=== PATIENT | male | born 1995 | race Two or more races ===

== ENCOUNTER → 2023-08-29 | Outpatient (CLI) | payer OTHER, SELFPAY ==
--- NOTE | 2023-08-29 | EGD_PTH ---
PATIENT: JOANNA FLORES [facility]#:[id number] AGE/SX: 27/M ROOM: RE08/29/[address]: Dr. Cecy Rajput MD : 1995 BED: DIS: 08/29/2023 SPEC #: [id number] RECD: 08/29/23 14:58 STATUS: JOSE ROCHA #: [id number] KATHY: 08/29/23 00:[address]: Cecy Rajput DEPT: SURGICAL PATHOLOGY RECD BY: Jeison Loya Tissues: A - Gastric mucous membrane B - Stomach, NOS Procedures: Surgery Specimen Level IV HEADER OPERATION: EGD PRE-OP DIAGNOSIS: Epigastric pain TISSUE SUBMITTED: A- Antral biopsy, B- Gastroesophageal junction biopsy MICROSCOPIC DIAGNOSIS A. Antrum, biopsy: Mild gastritis. See microscopic description and comment. B. Gastroesophageal junction, biopsy: A fragment of gastroesophageal mucosa with chronic inflammation. Intestinal metaplasia (goblet cell metaplasia) not identified. See comment. SJ/mr 5/7/24 COMMENT A. The results of immunohistochemistry for Helicobacter pylori will be reported separately ([id number]). B. Alcian blue/PAS stain with matched control is used in the evaluation of the specimen. MICROSCOPIC DESCRIPTION Slides are reviewed. A. The specimen shows fragments of gastric mucosa with chronic inflammatory cell infiltrates in the lamina propria consisting of lymphocytes and plasma cells, consistent with mild chronic gastritis. GROSS DESCRIPTION A. Received in fixative is one container labeled with the patient's name and designated Antrum biopsy. The specimen consists of one irregular fragment of light wright soft tissue that measures 0.2 x 0.2 x 0.1 cm. The specimen is totally submitted in one cassette. B. Received in fixative is one container labeled with the patient's name and designated GE junction biopsy. The specimen consists of one irregular fragment of light wright soft tissue that measures 0.3 x 0.3 x 0.1 cm. The specimen is totally submitted in one cassette. / 09/01/23 TC:3 CPT:29790u5,48169
--- NOTE | 2023-08-29 14:58 | IMM_PTH ---
PATIENT: JOANNA FLORES LOC: [facility] U#:[id number] AGE/SX: 27/M ROOM: RE08/29/[address]: Dr. Cecy Rajput MD : 1995 BED: DIS: 08/29/2023 SPEC #: [id number] RECD: 09/01/23 09:32 STATUS: JOSE ROCHA #: [id number] KATHY: 08/29/23 14:[address]: Cecy Rajput DEPT: IMMUNOHISTOCHEMISTRY RECD BY: Chad Wilkins Tissues: A - Stomach, NOS Procedures: H Pylori (initial) PHYSICIAN & INSTITUTION [place] [id number] SPECIMEN INFORMATION: Tissue Source: A- Antrum biopsy Clinical Info: Epigastric pain Specimen Number: [id number] CPT code: 34799 METHODOLOGY: Deparaffinized sections of prefer/formalin-fixed tissue or PAP/DQ stained slides are incubated with monoclonal/polyclonal antibodies/oligonucleotide probes. Localization is made via biotin free immunoperoxidase method. Appropriate controls are performed and reacted as expected. Results on target cell population are indicated in the following table: RESULTS: ANTIBODY / CLONE RESULT Block A H Pylori (polyclonal) negative These tests were developed and their performance characteristics determined by [facility]. They may not have been cleared or approved by the [place]. Food and Drug Administration. The FDA has determined that such clearance or approval is not necessary. The above immunohistochemical/dualISH markers are ordered and reviewed by the Pathologist. INTERPRETATION: A. Antrum, biopsy: Negative for Helicobacter pylori organisms. FERNANDO/ 09/02/23
== END | disposition home or self-care (01) ==
PROVIDERS: Referring Provider Surgery; Visit Provider Surgery
DX: R10.13 Epigastric pain (principal)
CPT/HCPCS: 88305; 88342